=== PATIENT | female | born 1975 | race Caucasian/White ===

== ENCOUNTER 2021-02-26 14:03 | Emergency (ER) | payer MEDICARE, OTHER ==
[2021-02-26 16:55] LABS: CORONAVIRUS 2019 SARS-COV-2 NEGATIVE (NEGATIVE); INFLUENZA A NAA NEGATIVE (NEGATIVE)
[2021-02-26] MEDS ORDERED: MEDROL 4MG DOSEP4 MG PO (19:19)
[2021-02-26] MEDS ORDERED: VENTOLIN HFA IN18 GM INH (19:19)
[2021-02-26] MEDS ORDERED: ZPAK PO (19:19)
== END 2021-02-26 19:51 | disposition home or self-care (01) ==
LOC: FER 14:03
PROVIDERS: Nurse Practitioner Family
DX: J06.9 Acute upper respiratory infection, unspecified (principal); F17.200 Nicotine dependence, unspecified, uncomplicated; Z88.0 Allergy status to penicillin; Z20.822 Contact with and (suspected) exposure to COVID-19
CPT/HCPCS: 71045; 94664; U0002